=== PATIENT | male | born 2000 ===

== ENCOUNTER 2022-01-07 16:50 | Emergency (ER) | payer OTHER, SELFPAY ==
[2022-01-07 16:55] VITALS: O2SAT 96
--- NOTE | 2022-01-07 16:57 | ED.ALLEREA ---
HPI - Allergic Reaction General Chief complaint: Allergic Reaction Stated complaint: Allergic Reaction Time Seen by Provider: 01/07/22 16:57 Source: patient and RN notes reviewed History of Present Illness HPI narrative: Patient is a 19-year-old male who presents the urgent care with his mother by car with complaints of difficulty breathing, swallowing and swelling around the mouth. Patient states that prior to arrival he started to feel the sensation after having toast ravioli, grapes and aloe vera drink. Patient states he did take supplements earlier which included glutamine and creatine. Patient states he has had all of these things in the past. Patient denies of any history of reaction. No other acute complaints. No acute distress noted. Patient and mother aware of the plan of care. Some parts of this dictation were generated by voice recognition software and may contain typographical and/or grammatical inaccuracies. Related Data Allergies Allergy/AdvReac Type Severity Reaction Status Date / Time No Known Allergies Allergy Verified 01/07/22 16:58 Review of Systems Review of Systems: CONSTITUTIONAL: Denies fever, chills, or sweats. EYES: Denies visual changes, redness, or discharge. ENT: Denies rhinorrhea, congestion, otalgia. Reports of difficulty swallowing and swelling to the lips and around the mouth CARDIOVASCULAR: Denies chest pain, palpitations, or edema. RESPIRATORY: Reports of difficulty breathing GASTROINTESTINAL: Denies abdominal pain, nausea, vomiting, or diarrhea. GENITOURINARY: Denies dysuria or hematuria. SKIN: Denies rash or itching. MUSCULOSKELETAL: Denies back pain, joint pain, or myalgia. NEUROLOGIC: Denies headache, numbness, or weakness. All other systems reviewed are negative, except as documented in HPI. Exam Narrative: GENERAL: This is a well-nourished, well-developed patient, in no apparent distress. HEAD: normocephalic, atraumatic. Perioral erythema with mild angioedema EYES: PERRL. Sclera clear/white. Vision is grossly intact. EARS: External ears normal NOSE: External nose normal with no obvious nasal discharge, nares without redness, no rhinorrhea. THROAT: Mucous membranes moist. Mild bilateral tonsillar edema with erythema and petechiae noted to the uvula. Moderate postnasal drainage. Patent airway NECK: Neck supple, non-tender without lymphadenopathy CARDIOVASCULAR: Regular rate and rhythm without murmurs, gallops, or rubs. RESPIRATORY: Clear to auscultation. Breath sounds equal bilaterally. No wheezes, rales, or rhonchi. SKIN: warm, intact with no suspicious lesions or rash, good texture and turgor. NEURO: awake, alert, and oriented to person, place and time. There were no obvious focal neurologic abnormalities. EXTREMITIES: No clubbing, cyanosis, or edema. Course Course Level of Care: Express Care Visit Vital Signs Vital signs: Vital Signs Temperature 99 F 01/07/22 16:58 Pulse Rate 79 01/07/22 16:58 Respiratory Rate 20 01/07/22 16:58 Blood Pressure 147/73 H 01/07/22 16:58 Pulse Oximetry 96 01/07/22 16:58 Oxygen Delivery Room Air 01/07/22 16:58 Temperature 99 F 01/07/22 16:58 Pulse Rate 79 01/07/22 16:58 Respiratory Rate 20 01/07/22 16:58 Blood Pressure 147/73 H 01/07/22 16:58 Pulse Oximetry 96 01/07/22 16:58 Oxygen Delivery Room Air 01/07/22 16:58 Reviewed-patient is informed that they may have pre-hypertension or hypertension based on a blood pressure reading in the department. I recommend the patient call the primary care provider listed on their discharge instructions or a physician of their choice this week to arrange follow-up for further evaluation of possible pre-hypertension or hypertension. Transfer Transfered to: [facility] Transportation: ALS Transfer rationale: Anaphylaxis Accepting physician: Dr. Anton MDM - Allergic Reaction MDM Narrative Medical decision making narrative: Patient is stable and
[2022-01-07 16:58] VITALS: BP 147/73; PULSE 79; RESP 20; TEMP 37.2; O2SAT 96
[2022-01-07] MEDS: FAMOTIDINE 20 MG TABLET PO (17:08)
[2022-01-07] MEDS: EPINEPHrine HCL INJ 1 MG/ML AMPUL 0.5 MG IM (17:08)
[2022-01-07] MEDS: diphenhydrAMINE HCl CAP 25 MG CAPSULE PO (17:09)
[2022-01-07] MEDS: methylPREDNISolone SOD SUCC 125 MG VIAL IV PUSH (17:12)
[2022-01-07 17:19] VITALS: PULSE 76; RESP 16; O2SAT 97
[2022-01-07 17:23] VITALS: BP 147/73; PULSE 79; RESP 20; TEMP 37.2; O2SAT 96
== END 2022-01-07 17:19 | disposition short-term general hospital (02) ==
PROVIDERS: Emergency Provider Nurse Practitioner Family; PCP Nurse Practitioner Family
DX: T78.2XXA Anaphylactic shock, unspecified, initial encounter (principal)
CPT/HCPCS: 96372; 96374; 99215; A9270; G0463; J0171; J2930

== ENCOUNTER 2024-01-28 08:29 | Emergency (ER) | payer OTHER, SELFPAY ==
[2024-01-28 08:35] VITALS: BP 138/69; PULSE 72; RESP 18; TEMP 36.6; O2SAT 99
--- NOTE | 2024-01-28 09:05 | ED.EYEPROB ---
HPI - Eye Problem General Chief complaint: Eye Problems Stated complaint: Left eye Time Seen by Provider: 01/28/24 09:00 Source: patient, RN notes reviewed and old records reviewed Mode of arrival: ambulatory Limitations: no limitations History of Present Illness HPI Narrative: 23 year old male who presents to [facility] care with complaints of 1 week duration of left upper eye lid growth to lateral eye area which is causing some blurriness from left eye and some discomfort when he blinks. Patient states that he had a stye to left upper eyelid about 2-3 weeks ago that healed on its own. Patient has pinkish red tissue noted to upper internal lateral eyelid approximate 0.3 diameter no pustules noted or any drainage. Patient denies any sharp pain to his left eye and denies noted acute vision changes MD chief complaint: other (growth left upper eyelid) Onset (ago): week(s) (1) Location: left eye Treatments Prior to Arrival: none Related Data Allergies Allergy/AdvReac Type Severity Reaction Status Date / Time grape Allergy Rash Verified 01/28/24 08:46 Review of Systems Review of Systems: CONSTITUTIONAL: Denies fever, chills, or sweats. EYES: Denies visual changes. Reports growth of tissue to lateral left upper internal eyelid for past one week duration no pustule formation or discharge ENT: Denies rhinorrhea, congestion, sore throat, or otalgia. CARDIOVASCULAR: Denies chest pain, palpitations, or edema. RESPIRATORY: Denies cough or dyspnea. SKIN: Denies rash or itching. NEUROLOGIC: Denies headache PMFSH Past Medical History Medical History (Updated 01/29/24 @ 19:15 by Verónica Ram NP) Acid reflux Social History Social History (Updated 01/29/24 @ 19:10 by Verónica Ram NP) Smoking status: Never smoker Alcohol intake: current Alcohol use details: rare social Substance use type: does not use Gender identity (if verbalized by the patient): Male Comments At time of signature, agree with nursing past medical, surgical, social and family history. There is no relevant family history pertinent to the presenting complaint Exam Narrative: GENERAL: Well-appearing, well-nourished, and in no acute distress. HEAD: Normocephalic, atraumatic. EYES: PERRLA and EOMI. Upper and lower eyelids unremarkable right eye. Left upper eyelid internal lateral growth noted 0.3cm estimate size no pustules, reports some blurriness of vision and discomfort when he blinks. No periorbital cellulitis noted. Sclera and conjunctivae clear ENT: Nares clear, no rhinorrhea or epistaxis. Mucous membranes moist. NECK: Supple. no lymphadenopathy CHEST: Clear to auscultation. No respiratory distress.SAO2 99% on room air HEART: Regular rate and rhythm. No murmur heard. Normal peripheral pulses. SKIN: Warm, dry, no rash. NEURO: No focal deficits. Alert and oriented x3. Course Course Emergency Course: Patient is aware of diagnosis, understands and agrees to treatment plan. Anticipatory guidance given. Patient agrees to follow-up as directed and is aware of reasons to seek care at the emergency department. Portions of this record may have been created with voice recognition software Level of Care: Express Care Visit Vital Signs Vital signs: Vital Signs Temperature 36.6 C 01/28/24 08:35 Pulse Rate 72 01/28/24 08:35 Respiratory Rate 18 01/28/24 08:35 Blood Pressure 138/69 01/28/24 08:35 Pulse Oximetry 99 01/28/24 08:35 Oxygen Delivery Room Air 01/28/24 08:35 Temperature 36.6 C 01/28/24 08:35 Pulse Rate 72 01/28/24 08:35 Respiratory Rate 18 01/28/24 08:35 Blood Pressure 138/69 01/28/24 08:35 Pulse Oximetry 99 01/28/24 08:35 Oxygen Delivery Room Air 01/28/24 08:35 Reviewed MDM - Eye Problem MDM Narrative Medical decision making narrative: Consideration of the following conditions may be warranted for the presenting problem, they are not final diagnoses: Bacterial conjunctivitis,
== END 2024-01-28 10:00 | disposition home or self-care (01) ==
PROVIDERS: Emergency Provider Registered Nurse; PCP Nurse Practitioner Family
DX: H00.024 Hordeolum internum left upper eyelid (principal); K21.9 Gastro-esophageal reflux disease without esophagitis
CPT/HCPCS: 99213; G0463